=== PATIENT | female | born 1990 | race Caucasian/White ===

== ENCOUNTER 2020-11-05 16:30 | Emergency (ER) | payer OTHER ==
[~2020-11-05] VITALS: Ht 177.8 cm; Wt 62.6 kg
[2020-11-05] MEDS ORDERED: BIRTH CONTROL (16:39)
[2020-11-05 17:16] VITALS: BP 138/72
== END 2020-11-05 17:16 | disposition home or self-care (01) ==
LOC: M.ERS 16:30
DX: S61.412A Laceration without foreign body of left hand, initial encounter (principal); Z23 Encounter for immunization; Z98.51 Tubal ligation status; Z88.0 Allergy status to penicillin; W26.8XXA Contact with other sharp object(s), not elsewhere classified, initial encounter; Y93.89 Activity, other specified; Y92.89 Other specified places as the place of occurrence of the external cause; Y99.8 Other external cause status